=== PATIENT | male | born 1970 | race Caucasian/White ===

== ENCOUNTER 2020-12-05 15:20 | Emergency (ER) | payer MEDICAID ==
[~2020-12-05] VITALS: Ht 182.9 cm; Wt 114.2 kg
[2020-12-05 15:35] VITALS: BP 154/102
--- NOTE | 2020-12-05 17:00 | NUR ---
MERCHANDISE DIRECTOR NOTE: NO ANSWER WHEN CALLED FROM LOBBY X 1
--- NOTE | 2020-12-05 17:18 | NUR ---
NO ANSWER WHEN CALLED FROM LOBBY X 2, LOBBY STAFF CONFIRMED PT HAS LEFT LOBBY.
== END 2020-12-05 17:36 | disposition left against medical advice (07) ==
LOC: ED 16:00
DX: S01.511A Laceration without foreign body of lip, initial encounter (principal); Z53.21 Procedure and treatment not carried out due to patient leaving prior to being seen by health care provider; W18.39XA Other fall on same level, initial encounter; Y93.89 Activity, other specified; Y92.89 Other specified places as the place of occurrence of the external cause; Y99.8 Other external cause status